=== PATIENT | female | born 1980 | race Caucasian/White ===

== ENCOUNTER 2020-09-24 08:27 | Inpatient (IN) ==
[2020-09-24] MEDS: Ringers Solution, Lactated 1,000 ML IVC SCH ×4 (09:15→21:29)
[2020-09-24] MEDS ORDERED: Scopolamine Patch 1.5 MG PATCH.TD72 TD ONE (09:27)
[2020-09-24] MEDS ORDERED: *HR* OxyCODONE Immed Rel 5 MG TABLET PO PRN (09:28)
[2020-09-24] MEDS ORDERED: Ondansetron 4 MG/2 ML VIAL IVP PRN (09:28)
[2020-09-24] MEDS ORDERED: Ringers Solution, Lactated 1,000 ML IVC SCH ×2 (09:30→12:30)
[2020-09-24] MEDS ORDERED: *HR* FentaNYL (PF) 100 MCG/2 ML VIAL ONE ×2 (09:56→11:40)
[2020-09-24] MEDS ORDERED: *HR* Propofol 200 MG/20 ML VIAL IVP ONE (09:56)
[2020-09-24] MEDS ORDERED: Lidocaine -MPF 2% 2 ML VIAL ONE (09:56)
[2020-09-24] MEDS ORDERED: *HR* Rocuronium Bromide 50 MG/5 ML VIAL ONE (09:56)
[2020-09-24] MEDS ORDERED: *HR* Succinylcholine 200 MG/10 ML VIAL IVP ONE (09:56)
[2020-09-24] MEDS ORDERED: Lidocaine HCL 4 ML Topical Solution (Laryng-O-Jet Kit Sterile Pak) TP ONE ×2 (09:56→10:12)
[2020-09-24] MEDS ORDERED: Ketorolac 30 MG/ML VIAL ONE (09:56)
[2020-09-24] MEDS ORDERED: Ondansetron 4 MG/2 ML VIAL ONE (09:56)
[2020-09-24] MEDS ORDERED: *HR* Midazolam HCl 2 MG/2 ML VIAL ONE (09:56)
[2020-09-24] MEDS ORDERED: Ketorolac 15 MG/ML VIAL IVP ONE (10:04)
[2020-09-24] MEDS ORDERED: Acetaminophen IV 1,000 MG/100 ML BAG IVPB ONE ×2 (10:22→10:40)
[2020-09-24] MEDS ORDERED: CeFAZolin Syr 2,000MG/20 ML 2,000 MG/20 ML SYRINGE IVPB ONE (10:34)
[2020-09-24] MEDS ORDERED: Naloxone 0.4 MG/ML INJ IVP PRN (12:15)
[2020-09-24] MEDS ORDERED: *HR* HYDROmorphone (PF) 1 MG/ML SYRINGE IVP PRN (12:18)
[2020-09-24] MEDS: *HR* HYDROmorphone PF 0.5 MG/0.5 ML SYRINGE IVP PRN ×4 (12:23→12:51)
[2020-09-24] MEDS ORDERED: *HR* Labetalol 20 MG/4 ML SYRINGE IVP ONE (14:06)
[2020-09-24] MEDS: Ketorolac 15 MG/ML VIAL IVP SCH ×2 (15:29→23:42)
[2020-09-24] MEDS: *HR* OxyCODONE/APAP 5/325 TABLET PO PRN ×2 (16:46→21:28)
[2020-09-24] MEDS: ceFAZolin 1,000 MG in Water for inj. (sterile) 10 ML IVP SCH (17:21)
[2020-09-24] MEDS: Ondansetron 4 MG/2 ML VIAL IVP PRN (21:35)
[2020-09-25] MEDS: *HR* OxyCODONE/APAP 5/325 TABLET PO PRN ×2 (01:17→08:16)
[2020-09-25] MEDS: Ondansetron 4 MG/2 ML VIAL IVP PRN (03:34)
[2020-09-25] MEDS: ceFAZolin 1,000 MG in Water for inj. (sterile) 10 ML IVP SCH (03:35)
[2020-09-25 04:19] LABS: eGFR For African Americans > 60 (> 60); eGFR For Non-African Americans > 60 (> 60)
[2020-09-25 04:47] LABS: Basophils % 0.2 %; Hematocrit 35.4 % (35.3-44.9); Hemoglobin 11.6 g/dL (11.5-15.4); Immature Granulocytes % 0.2 % (0-4); Lymphocytes # 1.4 K/mcL (0.6-4.6); Lymphocytes % 13.7 %; Mean Corpuscular HGB Conc 32.8 g/dL (31.6-35.5); Mean Corpuscular Hemoglobin 30.9 pg (28.0-33.3); Mean Corpuscular Volume 94.1 fL (83.0-100.0); Monocytes # 1.3 K/mcL (0.0-1.3); Monocytes % 13.1 %; Neutrophils # 7.2 K/mcL (1.6-8.9); Platelet Count 368 K/mcL (140-400); Red Blood Count 3.76 M/mcL (3.82-4.97); Red Cell Distribution Width 13.6 % (11.5-14.5); Segmented Neutrophils % 72.8 %; White Blood Count 9.8 K/mcL (4.3-11.1)
[2020-09-25] MEDS: Ketorolac 15 MG/ML VIAL IVP SCH (08:09)
[2020-09-25 08:27] VITALS: BP 128/73
== END 2020-09-25 09:48 | disposition home or self-care (01) | DRG 743 ==
LOC: SAMDAY 08:27 → 1NENUPED 13:30
PROVIDERS: ADMIT Obstetrics & Gynecology; ATTEND Obstetrics & Gynecology